=== PATIENT | male | born 1995 | race African-American/Black ===

== ENCOUNTER 2020-09-24 06:58 | Emergency (ER) | payer OTHER, SELFPAY ==
--- NOTE | ~2020-09-24 | XR_ITS ---
EXAMINATION: XR lumbar spine 2-3V DATE: 09/24/2020 08:00 INDICATION: Low back pain TECHNIQUE: Anteroposterior and lateral views of the lumbar spine were obtained. COMPARISON: None. FINDINGS: There are 3 mm of retrolisthesis of L5 on S1. The vertebral body heights and intervertebral disc spaces are maintained. There is no fracture. IMPRESSION: 1. No acute osseous abnormality. Reviewed, dictated and finalized at location A.
--- NOTE | ~2020-09-24 | XR_ITS ---
EXAMINATION:XR_CERV2-3V_CR DATE: 09/24/2020 08:00 INDICATION: Neck pain TECHNIQUE: AP, lateral, and odontoid views of the cervical spine are provided. COMPARISON: None FINDINGS: Alignment is normal. There is reversal of the normal cervical lordosis. The odontoid is int act. No fracture is identified. Vertebral body heights and disk spaces are normal. Prevertebral soft tissues are normal. IMPRESSION: 1. No acute osseous abnormality. If there is high clinical suspicion for cervical spine fracture, CT would be recommended. Reviewed, dictated and finalized at location A. IMPRESSION: 1. No acute osseous abnormality. If there is high clinical suspicion for cervic al spine fracture, CT would be recommended.
--- NOTE | ~2020-09-24 | XR_ITS ---
EXAMINATION: XR thoracic spine 3V DATE: 09/24/2020 08:00 INDICATION: Thoracic back pain TECHNIQUE: AP, lateral and lateral swimmer's views of the thoracic spine were obtained. COMPARISON: None. FINDINGS: There is no fracture, dislocation, or subluxation. The vertebral body heights, alignment, a nd intervertebral disc spaces are normal. The paravertebral soft tissues are unremarkable. IMPRESSION: 1. No acute osseous abnormality. Reviewed, dictated and finalized at location A.
[2020-09-24 07:07] VITALS: BP 161/98; PULSE 110; RESP 18; TEMP 36.4; O2SAT 99
[2020-09-24] MEDS: ACETAMINOPHEN 325 MG TABLET 650 MG PO (08:57)
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
== END 2020-09-24 09:39 | disposition home or self-care (01) ==
PROVIDERS: Emergency Provider Emergency Medicine
DX: M54.5 Low back pain (principal); I10 Essential (primary) hypertension; V87.7XXA Person injured in collision between other specified motor vehicles (traffic), initial encounter
CPT/HCPCS: 72040; 72072; 72100; 99284; A9270

== ENCOUNTER 2021-08-12 08:19 | Emergency (ER) | payer SELFPAY ==
--- NOTE | 2021-08-12 08:22 | ED.EXTPRO ---
HPI - Extremity Problem General Chief complaint: Skin/Abscess/Foreign Body Stated complaint: Swelling of Arm Time Seen by Provider: 08/12/21 08:30 Source: patient, RN notes reviewed and old records reviewed Mode of arrival: ambulatory Limitations: no limitations History of Present Illness HPI Narrative: 25-year-old male presents to the [facility] with redness to the medial aspect right bicep. Has felt feverish. Denies any injury. Has full range of motion of the shoulder, elbow and wrist. Positive radial pulse. Capillary refill under twos's. Onset (ago): day(s) (4) Related Data Allergies Allergy/AdvReac Type Severity Reaction Status Date / Time No Known Allergies Allergy Verified 08/12/21 08:37 Review of Systems Review of Systems: All systems reviewed & are unremarkable except as noted in HPI and below Constitutional: Constitutional: Reports no additional constitutional complaints, Denies chills and Denies fever(s) Eyes: Eyes: Reports no additional eye complaints ENT: Reports system reviewed and no additional complaints, except as documented Cardiovascular: Cardiovascular: Reports no additional cardiovascular complaints Respiratory: Respiratory: Reports no additional respiratory complaints Gastrointestinal: Gastrointestinal: Reports no additional gastrointestinal complaints Musculoskeletal: Musculoskeletal: Reports no additional musculoskeletal complaints Integumentary/Breasts: Skin/Breast: Reports as per HPI and Reports erythema (Medial aspect right bicep) Neurologic: Reports system reviewed and no additional complaints, except as documented Psychiatric: Psychiatric: Reports no additional psychiatric complaints Allergic/Immunologic: Allergic/Immunologic: Reports no additional allergic/immunologic complaints PMFSH Past Medical History Medical History (Updated 08/12/21 @ 16:17 by Marzena Kenney APRN) Patient denies medical problems Surgical History Surgical History (Updated 08/12/21 @ 16:17 by Marzena Kenney APRN) No pertinent past surgical history Social History Social History (Updated 08/12/21 @ 16:17 by Marzena Kenney APRN) Living arrangements: with family Gender identity (if verbalized by the patient): Male Comments At the time of my signature, I reviewed and agree with the nursing past medical, surgical, social, and family history. There is no relevant family history pertinent to the patient complaint. Exam Const: General: healthy appearing, no acute distress and alert Nutritional Appearance: well nourished and obese Orientation/consciousness: patient oriented x3 Limitations: no limitations HENMT: Head: normal to inspection Ears: external ears normal Eyes: General: appearance normal, both eyes and all related structures Pupils: Equal, round and reactive pupils present Neck: Neck: normal visual inspection, no lymphadenopathy and no meningeal signs Chest: Chest palpation & inspection: normal inspection of the chest Resp: Effort & Inspection: normal respiratory effort and no use of accessory muscles Auscultation: clear to auscultation bilaterally, no crackles, no rales, no rhonchi and no wheezes Cardio: Rate: regular rate Rhythm: regular rhythm GI: GI Palp: Yes Soft to palpation and No Tenderness to palpation present (GI) Back/Spine/Pelvis: Cervical Spine: normal cervical lordosis Thoracic/Lumbar Spine: thoracic and lumbar spine normal to inspection Skin: General skin exam: normal color Rashes: no rashes Wounds: no wounds Other: 15 x 9 cellulitic change right medial aspect upper arm. 2 x 2 centimeter indurated area at the proximal portion of the area. No streaking. Not circumferential. Area is hot to touch Neuro: General: patient oriented x3, moves all extremities, no meningeal signs and no focal motor deficits Cranial nerves: Yes Equal, round and reactive pupils present Speech: normal speech Gait exam (Neuro): Normal gait present Extrem: General: normal to insp
[2021-08-12 08:31] VITALS: BP 129/77; PULSE 97; RESP 16; TEMP 36.1; O2SAT 99
== END 2021-08-12 08:44 | disposition home or self-care (01) ==
PROVIDERS: Emergency Provider Nurse Practitioner
DX: L03.113 Cellulitis of right upper limb (principal)
CPT/HCPCS: 99213; G0463

== ENCOUNTER 2023-03-25 16:30 | Emergency (ER) | payer OTHER, SELFPAY ==
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
[2023-03-25 16:32] VITALS: BP 143/92; PULSE 113; RESP 18; TEMP 37.7; O2SAT 97
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
== END 2023-03-25 18:18 | disposition home or self-care (01) ==
LOC: ANHED 18:15
PROVIDERS: Emergency Provider Physician Assistant
DX: S46.912A Strain of unspecified muscle, fascia and tendon at shoulder and upper arm level, left arm, initial encounter (principal); V43.52XA Car driver injured in collision with other type car in traffic accident, initial encounter
CPT/HCPCS: 73030; 99283

== ENCOUNTER 2023-04-02 12:13 | Emergency (ER) | payer SELFPAY ==
[2023-04-02 12:35] VITALS: BP 145/91; PULSE 81; RESP 18; TEMP 36.5; O2SAT 100
--- NOTE | 2023-04-02 14:32 | PC.NURSE ---
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
== END 2023-04-02 17:11 | disposition left against medical advice (07) ==
LOC: ANHED 17:05
DX: M54.9 Dorsalgia, unspecified (principal)
CPT/HCPCS: 99199

== ENCOUNTER 2024-10-27 11:32 | Emergency (ER) | payer BC, SELFPAY ==
--- NOTE | 2024-10-27 11:38 | ED_ITS ---
HPI - Extremity Problem General Chief complaint: Extremity Problem,Nontraumatic Stated complaint: pain both hands Time Seen by Provider: 10/27/24 11:45 Source: patient and RN notes reviewed Mode of arrival: ambulatory Limitations: no limitations History of Present Illness HPI Narrative: 29-year-old male presents with concern for bilateral hands stinging him pain. 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 Reports he was using metal ties all day long. Reports he was wearing gloves when he was doing this. Reports the of the day he had bilateral stinging type hand pain. He denies any decreased strength, sensation, range of motion in the hand or digits. He denies any rash, redness, warmth, swelling. He denies any open skin. MD Complaint: extremity pain Related Data Allergies Allergy/AdvReac Type Severity Reaction Status Date / Time No Known Allergies Allergy Verified 10/27/24 11:44 Review of Systems Review of Systems: CONSTITUTIONAL: Denies malaise, chills, sweats, or fever. CARDIOVASCULAR: Denies chest pain, palpitations, or edema. RESPIRATORY: Denies cough or dyspnea. SKIN: Denies rash or itching, bruising, redness, swelling. MUSCULOSKELETAL: Reports bilateral hand stinging pain NEUROLOGIC: Denies numbness, weakness All systems reviewed & are unremarkable except as noted in HPI and below PMFSH Past Medical History Medical History (Updated 10/27/24 @ 11:53 by Marzena Wyatt NP) Patient denies medical problems Surgical History Surgical History (Updated 08/12/21 @ 16:17 by Marzena Kenney APRN) No pertinent past surgical history Social History Social History (Updated 08/12/21 @ 16:17 by Marzena Kenney APRN) Living arrangements: with family Gender identity (if verbalized by the patient): Male Comments At time of signature, agree with nursing past medical, surgical, social and family history. There is no relevant family history pertinent to the presenting complaint Exam Narrative: GENERAL: Well-appearing, well-nourished, and in no acute distress. HEAD: Normocephalic, atraumatic. EYES: PERRLA, conjunctivae clear NECK: Supple. CHEST: Speaks in full sentences. No respiratory distress. HEART: Regular rate and rhythm. Normal and equal peripheral pulses. EXTREMITIES: Bilateral hands and digits have normal strength and sensation, normal range of motion. No edema or ecchymosis. 5/5 strength with digit flexion and extension. Normal sensation with sensitivity to light touch and pain. No point tenderness. No open wounds, no skin tenting, no devitalized tissue or atrophy, no trophic changes, no obvious deformity, alignment normal, nearby joints and structures intact. Distal pulses palpable and equal bilaterally, skin warm, dry, pink. Capillary refill less than 3 seconds. SKIN: Warm, dry, no rash. NEURO: Alert and oriented x3. PSYCH: Normal mood and affect Course Course Emergency Course: Patient is aware of diagnosis, understands and agrees to treatment plan. Anticipatory guidance given. Patient agrees to follow-up as directed and is aware of reasons to seek care at the emergency department. Portions of this record may have been created with voice recognition software Level of Care: Express Care Visit Vital Signs Vital signs: Reviewed. MDM - Extremity (Nontraumatic) MDM Narrative Medical decision making narrative: Patients pain is consistent with musculoskeletal etiology. No signs of neurological or vascular compromise on exam. Compartments and tissues are soft without signs of compartment syndrome. Pain is felt appropriate for further evaluation on an outpatient basis. Critical Care Time Critical Care Time Critical Care Time: No Discharge Plan Discharge Clinical Impression: Bilateral hand pain Patient Disposition: Home Condition: Stable Instructions: Cold Compress or Soak (ED) Additional Instructions: Please follow up with your Primary Care Doctor if symptoms do not improve. Rest, avoid activities that worsen pain. Take Naproxen twice daily for the next 2-3 days, take muscle relaxers every 8 hours as needed for muscle spasm- do not drive or make any important decisions while on this medication for it can make you drowsy. You may apply ice to the area as needed. If you experience any worsening pain, swelling, numbness, weakness please go to ER. Patient Language: Frisian Prescriptions: New cyclobenzaprine 10 mg tablet 10 mg PO TID PRN (Reason: muscle spasm) Qty: 20 0RF naproxen 500 mg tablet 500 mg PO BID PRN (Reason: pain) Qty: 20 0RF Follow-up/Referrals: PHYSICIAN,[employer]ES AND CARAMEL OPERATOR [Primary Care Provider, Internal Medicine] Stand Alone Forms: Work/School Release IP Time of Disposition: 11:55
[2024-10-27 11:45] VITALS: BP 94/57; PULSE 85; RESP 18; TEMP 36.5; O2SAT 98
== END 2024-10-27 12:04 | disposition home or self-care (01) ==
PROVIDERS: Emergency Provider Nurse Practitioner
DX: M79.642 Pain in left hand (principal); M79.641 Pain in right hand
CPT/HCPCS: 99213; G0463

== ENCOUNTER 2024-11-13 08:11 | Emergency (ER) | payer BC, SELFPAY ==
[2024-11-13 08:22] VITALS: BP 103/60; PULSE 79; RESP 16; TEMP 36.5; O2SAT 100
--- NOTE | 2024-11-13 08:36 | ED_ITS ---
HPI - Nausea/Vomiting/Diarrhea General Chief complaint: Upper Respiratory Infection Stated complaint: Sinus Time Seen by Provider: 11/13/24 08:20 Source: patient Mode of arrival: ambulatory Limitations: no limitations History of Present Illness HPI Narrative: 29-year-old male presents with complaint of diarrhea and burping since last night. Patient reports 6 episodes of diarrhea during the night. Reports genera lized body aches. feels weak . Afebrile. No upper respiratory symptoms. No abdominal pain. No nausea or vomiting. Patient requesting work note. Patient states he went to [facility] over the weekend and ate poorly . All systems reviewed and negative except as noted above. Related Data Allergies Allergy/AdvReac Type Severity Reaction Status Date / Time No Known Allergies Allergy Verified 11/13/24 08:31 [facility] Past Medical History Medical History (Updated 11/13/24 @ 08:31 by Radha Ashby NP) Patient denies medical problems Surgical History Surgical History (Updated 08/12/21 @ 16:17 by Marzena Kenney APRN) No pertinent past surgical history Social History Social History (Updated 08/12/21 @ 16:17 by Marzena Kenney APRN) Living arrangements: with family Gender identity (if verbalized by the patient): Male Comments At time of signature, agree with nursing past medical, surgical, social and family history. There is no relevant family history pertinent to the presenting complaint. Exam Narrative: GENERAL: This is a well-nourished, well-developed patient, in no apparent distress. HEAD: normocephalic, atraumatic. EYES: PERRL. Sclera clear/white. Vision is grossly intact. EARS: External ears normal NOSE: External nose normal NECK: Neck supple, non-tender without lymphadenopathy, masses or thyromegaly. CARDIOVASCULAR: Regular rate and rhythm without murmurs, gallops, or rubs. RESPIRATORY: Clear to auscultation. Breath sounds equal bilaterally. No wheezes, rales, or rhonchi. GASTROINTESTINAL: Abdomen soft, non-tender, nondistended. Bowel sounds are active. No hepato-splenomegaly, or palpable masses. No guarding. SKIN: warm, Dry, intact with no suspicious lesions or rash, good texture and turgor. NEURO: awake, alert, and oriented to person, place and time. There were no obvious focal neurologic abnormalities. EXTREMITIES: No joint tenderness, effusion, or edema noted. Course Course Level of Care: Express Care Visit Vital Signs Vital signs: Vital Signs Temperature 36.5 C 11/13/24 08:22 Pulse Rate 79 11/13/24 08:22 Respiratory Rate 16 11/13/24 08:22 Blood Pressure 103/60 11/13/24 08:22 Pulse Oximetry 100 11/13/24 08:22 Temperature 36.5 C 11/13/24 08:22 Pulse Rate 79 11/13/24 08:22 Respiratory Rate 16 11/13/24 08:22 Blood Pressure 103/60 11/13/24 08:22 Pulse Oximetry 100 11/13/24 08:22 Reviewed MDM - Nausea/Vomiting/Diarrhea MDM Narrative Medical decision making narrative: patient is well-appearing, nontoxic. Vital signs stable. No abdominal tenderness on exam. No nausea vomiting or diarrhea while Express Care. Patient stating he is here for work note. Will treat burping with Pepcid, given Imodium for diarrhea. Recommend hydration with water. Differential Diagnosis Differential diagnosis: Likely gastroenteritis Discharge Plan Discharge Clinical Impression: Diarrhea Patient Disposition: Home Condition: Stable Instructions: Gastroenteritis (ED) Additional Instructions: Take medications as prescribed. Take tyelnol or ibuprofen every 6 to 8 hours as needed for pain. Drink at least 64 ounces of water a day. See your doctor if not improving. Patient Language: Pashto Prescriptions: New loperamide [Imodium A-D] 2 mg tablet 2 mg PO Q6H PRN (Reason: loose stool) Qty: 20 0RF Rx Instructions: Take 2 tablets initially and then take 1 tablet after each loose stool. Max: 4 tabs/24 hrs famotidine 40 mg tablet 40 mg PO DAILY Qty: 30 0RF Follow-up/Referrals: PHYSICIAN,PRECIPITATOR OPERATOR [Primary Care Provider, Internal Medicine] Stand Alone Forms: Work/School Release IP Time of Disposition: 08:34
== END 2024-11-13 08:40 | disposition home or self-care (01) ==
PROVIDERS: Emergency Provider Nurse Practitioner Family
DX: R19.7 Diarrhea, unspecified (principal)
CPT/HCPCS: 99213; G0463

== ENCOUNTER 2024-12-15 08:13 | Emergency (ER) | payer BC, SELFPAY ==
[2024-12-15 08:27] VITALS: BP 117/69; PULSE 71; RESP 16; TEMP 36.9; O2SAT 100
--- NOTE | 2024-12-15 08:52 | ED_ITS ---
HPI - General Adult General Chief complaint: Neck Pain/Injury Stated complaint: neck and shoulder pain Source: patient Mode of arrival: ambulatory Limitations: no limitations History of Present Illness HPI narrative: Patient presents for evaluation of neck pain since 11/30/2024. He works for [employer]. He states he was at work on 11/30/24 when a board fell, landing beneath his chin and across his anterior neck. He states he had an x ray which was normal. He was cleared to return to work. He states that his pain prohibited him from going into work today. He rates his pain as 10/10 localized to the left anterolateral neck, with radiation into the left shoulder. He denies any difficulty breathing or swallowing. He states OTC agents have not been helpful. Related Data Allergies Allergy/AdvReac Type Severity Reaction Status Date / Time No Known Allergies Allergy Verified 12/15/24 08:36 Review of Systems Review of Systems: CONSTITUTIONAL: Denies fever, chills, or sweats. EYES: Denies visual changes, redness, or discharge. ENT: Denies rhinorrhea, congestion, sore throat, or otalgia. CARDIOVASCULAR: Denies chest pain, palpitations, or edema. RESPIRATORY: Denies cough or dyspnea. GASTROINTESTINAL: Denies abdominal pain, nausea, vomiting, or diarrhea. GENITOURINARY: Denies dysuria or hematuria. SKIN: Denies rash or itching. MUSCULOSKELETAL: reports neck pain with radiation into the left shoulder NEUROLOGIC: Denies headache, numbness, dizziness, or weakness. PSYCHIATRIC: Denies anxiety or depression. PMFSH Past Medical History Medical History Patient denies medical problems Surgical History Surgical History No pertinent past surgical history Family History Family History Mother Family history non-contributory Social History Social History Living arrangements: with family Gender identity (if verbalized by the patient): Male Exam Narrative: GENERAL: Well-appearing, well-nourished, and in no acute distress. HEAD: Normocephalic, atraumatic. EYES: PERRLA and EOMI. ENT: Nares clear, no rhinorrhea or epistaxis. Mucous membranes moist. Oropharynx without tonsillar hypertrophy exudate or other lesions. Bilateral T Ms pearly perez nonbulging NECK: Supple. No adenopathy or masses. No carotid bruits or JVD, Mild tenderness noted in the left lateral neck CHEST: Clear to auscultation. No respiratory distress. No wheezes rales or rhonchi HEART: Regular rate and rhythm. No murmur heard. Normal peripheral pulses. ABDOMEN: Soft, nontender, nondistended, normal active bowel sounds. EXTREMITIES: Normal range of motion. No edema. SKIN: Warm, dry, no rash. NEURO: No focal deficits. Alert and oriented x3. PSYCH: Normal mood and affect. Course Course Emergency Course: This is a 29-year-old male who presented for evaluation pain in the neck with radiation into the shoulder. He has already had an x-ray which was normal per his reports. He has no stridor difficulty breathing/swallowing. He is requesting a note to excuse him from work today. Will dc with meloxicam and flexeril. Follow up with primary provider. Go to the emergency department for worsening symptoms. Patient in agreement with plan of care. Level of Care: Express Care Visit Vital Signs Vital signs: Vital Signs Temperature 36.9 C 12/15/24 08:27 Pulse Rate 71 12/15/24 08:27 Respiratory Rate 16 12/15/24 08:27 Blood Pressure 117/69 12/15/24 08:27 Pulse Oximetry 100 12/15/24 08:27 Oxygen Delivery Room Air 12/15/24 08:27 Temperature 36.9 C 12/15/24 08:27 Pulse Rate 71 12/15/24 08:27 Respiratory Rate 16 12/15/24 08:27 Blood Pressure 117/69 12/15/24 08:27 Pulse Oximetry 100 12/15/24 08:27 Oxygen Delivery Room Air 12/15/24 08:27 Medical Decision Making Vital Signs Vital Signs: Vital Signs Temperature 36.9 C 12/15/24 08:27 Pulse Rate 71 12/15/24 08:27 Respiratory Rate 16 12/15/24 08:27 Blood Pressure 117/69 12/15/24 08:27 Pulse Oximetry 100 12/15/24 08:27 Oxygen Delivery Room Air 12/15/24 08:27 Temperature 36.9 C 12/15/24 08:27 Pulse Rate 71 12/15/24 08:27 Respiratory Rate 16 12/15/24 08:27 Blood Pressure 117/69 12/15/24 08:27 Pulse Oximetry 100 12/15/24 08:27 Oxygen Delivery Room Air 12/15/24 08:27 Discharge Plan Discharge Clinical Impression: Contusion of neck Patient Disposition: Home Condition: Stable Instructions: Antibiotic Form, Contusion in Adults (ED) Patient Language: Georgian Prescriptions: New meloxicam 15 mg tablet 15 mg PO DAILY Qty: 10 0RF cyclobenzaprine 10 mg tablet 10 mg PO TID PRN (Reason: muscle spasm) Qty: 15 0RF Follow-up/Referrals: Claudia,Jyotsna [Other] Stand Alone Forms: Work/School Release IP Time of Disposition: 08:51
== END 2024-12-15 08:58 | disposition home or self-care (01) ==
PROVIDERS: Emergency Provider Nurse Practitioner
DX: S10.93XD Contusion of unspecified part of neck, subsequent encounter (principal); W20.8XXD Other cause of strike by thrown, projected or falling object, subsequent encounter; Y99.0 Civilian activity done for income or pay
CPT/HCPCS: 99213; G0463